=== PATIENT | female | born 2000 | race American Indian/Alaskan Native ===

== ENCOUNTER 2021-09-14 02:53 | Emergency (ER) | payer SELFPAY | END 2021-09-14 07:00 | disposition left against medical advice (07) | LOC: ED 02:53 | DX: L60.0 Ingrowing nail (principal); Z53.21 Procedure and treatment not carried out due to patient leaving prior to being seen by health care provider ==

== ENCOUNTER 2021-09-16 15:28 | Emergency (ER) | payer OTHER ==
[2021-09-16 20:16] VITALS: BP 121/68
--- NOTE | 2021-09-16 21:12 | Emergency Department Report ---
- General Chief Complaint: Skin/Abscess/Foreign Body Stated Complaint: CYST REPTURED Time Seen by Provider: 09/16/21 20:22 Source: patient Mode of arrival: Ambulatory Limitations: No Limitations - History of Present Illness Initial Comments: 21-year-old female Deborah emerged department for wound reevaluation she is status post incision and drainage of her mons pubis to the left aspect of an abscess at [facility], [place] 3 days ago. She states during her emergency room visit inci sonam and drainage was august wound discharge was evacuated and wound packing was placed. She was advised to follow-up for the packing removed but is to come to our facility instead of returning to the treat initial treating facility [facility]. She reports dull throbbing pain status discharge from the wound site with no fevers, chills, sweats. He reports no chest pain palpitation, no nausea no vomiting. Place: home Associated Symptoms: none - Related Data Previous Rx's Medication Instructions Recorded Last Taken Type Chlorhexidine Gluconate [Hibiclens] 10 ml TP BID #240 09/16/21 Unknown Rx Allergies Allergy/AdvReac Type Severity Reaction Status Date / Time No Known Allergies Allergy Verified 09/16/21 15:50 ED Review of Systems ROS: Stated complaint: CYST REPTURED Other details as noted in HPI Comment: All other systems reviewed and negative ED Past Medical Hx - Past Medical History Previous Medical History?: No - Social History Smoking Status: Never Smoker - Medications Home Medications: Home Medications Medication Instructions Recorded Confirmed Last Taken Type Chlorhexidine Gluconate [Hibiclens] 10 ml TP BID #240 09/16/21 Unknown Rx ED Physical Exam - General Limitations: No Limitations General appearance: alert, in no apparent distress - Head Head exam: Present: atraumatic, normocephalic - Eye Eye exam: Present: normal appearance - ENT ENT exam: Present: mucous membranes moist - Neck Neck exam: Present: normal inspection - Respiratory Respiratory exam: Present: normal lung sounds bilaterally. Absent: respiratory distress - Cardiovascular Cardiovascular Exam: Present: regular rate, normal rhythm. Absent: systolic murmur, diastolic murmur, rubs, gallop - GI/Abdominal GI/Abdominal exam: Present: soft, normal bowel sounds - Expanded Exam Expanded image: 1 - Area of abscess and packing. Some local erythema is present. No lymphangitis or lymphadenopathy is appreciated. - Extremities Exam Extremities exam: Present: normal inspection - Back Exam Back exam: Present: normal inspection - Neurological Exam Neurological exam: Present: alert, oriented X3 - Psychiatric Psychiatric exam: Present: normal affect, normal mood - Skin Skin exam: Present: warm, dry, intact, normal color. Absent: rash ED Course Vital Signs 09/16/21 09/16/21 09/16/21 15:45 15:50 20:15 Temperature 98.8 F 97.8 F Pulse Rate 82 78 Respiratory 16 20 Rate Blood Pressure 117/77 121/68 [Left] O2 Sat by Pulse 91 100 Oximetry ED Medical Decision Making - Medical Decision Making 19-year-old female with a mons pubis abscess already incised and drained with packing in place. No signs of any worsening infection on examination or based on her history. Attempts were made to to remove the packing x3 have the patient was removed electroplating 1 touched the packing despite repeated methods of calming and discussion about removal. The patient grabbed a plasma and multiple times after she initially had agreed changing her mind made attempt as ultimately the packing was not retrieved. Advised patient to return home and do warm baths and ensure that the packing will be removed within the next 24 hours if not she will need to follow-up with primary care or the treating facility for packing removal. Critical care attestation.: If time is entered above; I have spent that time in minutes in the direct care of this critically ill patient, excluding procedure time. ED Disposition Clinical Impression: Open wound of pubic region without complication Disposition: HOME / SELF CARE / HOMELESS Is pt being admited?: No Does the pt Need Aspirin: No Condition: Stable Instructions: Wound Care, Adult, Wound Packing Prescriptions: Chlorhexidine Gluconate [Hibiclens] 10 ml TP BID #240 Referrals: [facility] [Provider Group] - 3-5 Days DIMAS DUMONT MD [Staff Physician] - 3-5 Days
== END 2021-09-16 23:43 | disposition home or self-care (01) ==
LOC: ED 15:28
DX: S31.109A Unspecified open wound of abdominal wall, unspecified quadrant without penetration into peritoneal cavity, initial encounter (principal); Z79.899 Other long term (current) drug therapy; X58.XXXA Exposure to other specified factors, initial encounter; Y93.89 Activity, other specified; Y92.89 Other specified places as the place of occurrence of the external cause; Y99.8 Other external cause status
CPT/HCPCS: 99282; 99283